=== PATIENT | female | born 1990 | race Caucasian/White ===

== ENCOUNTER 2023-07-20 06:09 | Inpatient (IN) ==
[2023-07-20] MEDS ORDERED: PITOCIN ONE (06:30)
[2023-07-20] MEDS ORDERED: BETADINE SOLN ONE (06:31)
[2023-07-20] MEDS ORDERED: D5 1/2 NS 1,000 ML 1,000 ML IV ONE (06:31)
[2023-07-20] MEDS ORDERED: D5 LR + PITOCIN 10 UNITS/L 10 UNITS/1,000 ML BAG IV ONE (06:33)
[2023-07-20] MEDS ORDERED: D5 1/2 NS 1,000 mL + PITOCIN 20 UNITS/L IV 20 UNITS/1,000 ML BAG IV ONE (06:34)
[2023-07-20] MEDS ORDERED: PITOCIN IV PRN (07:00)
[2023-07-20] MEDS ORDERED: LR IV PRN (07:00)
--- NOTE | 2023-07-20 07:06 | DR.OB ---
OB QUICK NOTE Assessment/Plan (1) Active labor at term: Assessment/Plan: L&D 07/20/23 at 7:00am S-No complaint. O-Afebrile,VSS VNJ=[id number] with good LTV, +accel, no decel. CTX=none CVX=1cm/25%/-1/VTX AROM with clear fluid. IUPC and FSE placed. A-IUP at 38 4/7 weeks for induction A1DM Bipolar d.o. P-Begin pitocin induction Anticipate
[2023-07-20] MEDS ORDERED: ZOFRAN INJ 4 MG VIAL IVP PRN (07:10)
[2023-07-20] MEDS ORDERED: REGLAN INJ 10 MG VIAL IVP PRN (07:10)
[2023-07-20] MEDS ORDERED: PITOCIN IVP ONE (07:10)
[2023-07-20] MEDS ORDERED: OXYTOCIN 20 UNIT/1,000 ML-NS 20 UNIT/1,000 ML PLAST..BAG IV PRN (07:10)
[2023-07-20] MEDS ORDERED: STADOL INJ IVP PRN (07:10)
[2023-07-20] MEDS ORDERED: D5 1/2 NS 1,000 ML 1,000 ML IV SCH (07:10)
[2023-07-20] MEDS ORDERED: NUBAIN INJ 200 MG VIAL MULTIDOSE ONE ×3 (08:41→16:29)
[2023-07-20] MEDS: NUBAIN INJ 20 MG AMP IVP PRN ×2 (08:45→11:15)
[2023-07-20] MEDS ORDERED: LR 1,000 ML IV 1,000 ML IV ONE (10:51)
[2023-07-20] MEDS ORDERED: FENTANYL VIAL INJ 100 mcg ONE (10:51)
[2023-07-20] MEDS ORDERED: NAROPIN EPIDURAL 0.2% 100 ML ONE (10:52)
--- NOTE | 2023-07-20 12:36 | DR.OB ---
OB QUICK NOTE Assessment/Plan (1) Active labor at term: Assessment/Plan: L&D 07/20/23 at 12:30pm Pitocin=18mu/min. S-No complaint. s/p epidural. O-Afebrile,VSS QPW=599 with good LTV, +accel, no decel. CTX=q 1 1/2 to 2 min., about 45-65mmHg CVX=3cm/75%/0 A-IUP at 38 4/7 weeks for induction A1DM bipolar d/o P-Cont. pitocin induction Anticipate
[2023-07-20] MEDS ORDERED: MOTRIN TAB 800 MG PO PRN ×2 (17:35→18:52)
--- NOTE | 2023-07-20 17:35 | DR.OB ---
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 Head delivered over intact perineum. Nose and mouth bulb suctioned. No nuchal cord. Body delivered over intact perineum with compound presentation (right hand to head). Cord clamped x 2 and cut. handed to attendant. Cord sent for gases. Placenta delivered spontaneously / intact / 3 vessel cord. No CVX / vaginal / perineal tears. Viable female delivered by , VTX / OA, wt=5'12" and 8/9, stable to NBN. Mother stable to RR. IJN=[id number].
[2023-07-20] MEDS: D5 1/2 NS 1,000 ML 1,000 ML with PITOCIN 20 UNITS IV SCH ×2 (17:45)
[2023-07-20] MEDS ORDERED: DERMOPLAST PAIN RELIEF SPRAY TOP PRN (18:52)
[2023-07-20] MEDS ORDERED: ADACEL or BOOSTRIX TDaP VACCINE IM ONE ×2 (18:52→21:13)
[2023-07-20] MEDS ORDERED: MILK OF MAGNESIA PO PRN (18:52)
[2023-07-20] MEDS ORDERED: AMBIEN PO PRN (18:52)
[2023-07-20] MEDS: LAMICTAL TAB 100 MG PO SCH (21:29)
[2023-07-20] MEDS: PROzac PO SCH (21:29)
[2023-07-21] MEDS: D5 1/2 NS 1,000 ML 1,000 ML with PITOCIN 20 UNITS IV SCH ×2 (02:39)
[2023-07-21 05:40] LABS: HEMATOCRIT 34.1 % (36.0-47.0)
[2023-07-21] MEDS: PROzac PO SCH (08:08)
[2023-07-21] MEDS: LAMICTAL TAB 100 MG PO SCH (08:08)
[2023-07-21] MEDS ORDERED: PRENATAL PLUS PO SCH (09:00)
[2023-07-21 12:08] VITALS: O2SAT 97
[2023-07-21 12:09] VITALS: BP 130/75; PULSE 85; RESP 20; TEMP 97.7
== END 2023-07-21 18:20 | disposition home or self-care (01) | DRG 806 ==
LOC: LD 06:09 → MED/SURG 18:42
PROVIDERS: ADMIT Specialist; ATTEND Specialist
DX: Z3A.38 38 weeks gestation of pregnancy; Z37.0 Single live birth; O24.410 Gestational diabetes mellitus in pregnancy, diet controlled; O99.343 Other mental disorders complicating pregnancy, third trimester; F31.89 Other bipolar disorder